=== PATIENT | male | born 1935 | race Caucasian/White ===

== ENCOUNTER 2020-11-26 12:54 | Emergency (ER) | payer MEDICARE ==
[~2020-11-26] VITALS: Ht 167.6 cm; Wt 68.0 kg
[2020-11-26] MEDS ORDERED: RIVA10TA PO (13:13)
[2020-11-26] MEDS ORDERED: TDAP DIPH,PERTUSS,TET VAC/PF 0.5 ML DISP.SYRIN IM ONE ×2 (14:30→16:05)
--- NOTE | 2020-11-26 14:46 | NUR ---
PT IS IN ROOM #1A . DR FLAHERTY EVALUATED THE PT.
[2020-11-26 15:22] LABS: BASOPHILS % (AUTO) 0.4 % (0.0-2.0); EOSINOPHILS % (AUTO) 0.8 % (0.0-7.0); HEMATOCRIT 36.8 % (36.7-47.1); HEMOGLOBIN 12.1 g/dL (12.5-16.3); LYMPHOCYTES # (AUTO) 0.6 K/uL (20.0-40.0); LYMPHOCYTES % (AUTO) 11.4 % (20.5-51.5); MEAN CORPUSCULAR HEMOGLOBIN 31.5 uug (23.8-33.4); MEAN CORPUSCULAR HGB CONC 33 g/dL (32.5-36.3); MEAN CORPUSCULAR VOLUME 95.9 fL (73.0-96.2); MONOCYTES # (AUTO) 0.5 K/uL (2.0-10.0); MONOCYTES % (AUTO) 9.5 % (0.0-11.0); NEUTROPHILS # (AUTO) 4.3 K/uL (1.8-8.9); NEUTROPHILS % (AUTO) 77.9 % (38.5-71.5); PLATELET COUNT (AUTO) 176 K/uL (152-348); RED BLOOD CELL COUNT(AUTO) 3.84 MIL/uL (4.06-5.63); WHITE BLOOD COUNT (AUTO) 5.5 K/uL (3.6-10.2)
[2020-11-26 15:45] LABS: CREATININE 1.2 mg/dL (0.6-1.3); POTASSIUM 4.4 mmol/L (3.5-5.1)
[2020-11-26 16:02] LABS: BILIRUBIN,DIRECT 0.2 mg/dL (0.0-0.2); BILIRUBIN,TOTAL 0.5 mg/dL (0.2-1.0); TOTAL PROTEIN, SERUM 6.5 g/dL (6.4-8.2)
[2020-11-26] MEDS ORDERED: ATOR10TA PO (16:05)
[2020-11-26] MEDS ORDERED: SODIUM CHLORIDE PO (16:05)
[2020-11-26] MEDS ORDERED: FINA5TAB11 PO (16:05)
[2020-11-26] MEDS ORDERED: TAMS-3 PO (16:05)
[2020-11-26] MEDS ORDERED: METO-356 PO (16:05)
[2020-11-26] MEDS ORDERED: VITAMIN B12 (16:05)
--- NOTE | 2020-11-26 16:10 | NUR ---
PT STATED THAT HE HAD TETANUS VACCINATION 3 YEARS AGO, AND HE DOES NOT WANT TETANUS SHOT NOW. DR FLAHERTY NOTIFIED.
--- NOTE | 2020-11-26 17:04 | NUR ---
PT WAS D/C'd TO HOME. D/C INSTRUCTIONS GIVEN TO THE PT BY DR FLAHERTY.
[2020-11-26 17:05] VITALS: BP 141/72
== END 2020-11-26 17:06 | disposition home or self-care (01) ==
LOC: ER 12:54
DX: S02.2XXA Fracture of nasal bones, initial encounter for closed fracture (principal); S06.9X0A Unspecified intracranial injury without loss of consciousness, initial encounter; W01.0XXA Fall on same level from slipping, tripping and stumbling without subsequent striking against object, initial encounter; Y92.89 Other specified places as the place of occurrence of the external cause; S01.21XA Laceration without foreign body of nose, initial encounter; S61.412A Laceration without foreign body of left hand, initial encounter; Z90.49 Acquired absence of other specified parts of digestive tract; Z79.01 Long term (current) use of anticoagulants; Z95.2 Presence of prosthetic heart valve; N40.0 Benign prostatic hyperplasia without lower urinary tract symptoms; Z85.828 Personal history of other malignant neoplasm of skin; E78.5 Hyperlipidemia, unspecified; I10 Essential (primary) hypertension; Z95.0 Presence of cardiac pacemaker
CPT/HCPCS: 36415; 70030-TC; 70450; 70486; 72125; 85025; 85730; 90715; 93005; A4663